=== PATIENT | female | born 1995 | race Caucasian/White ===

== ENCOUNTER 2018-11-03 16:15 | Emergency (ER) | payer OTHER ==
[2018-11-03 17:04] LABS: ABS Eosinophils 0.1 10^3/ul (0-0.6); ABS Monocytes 0.7 10^3/ul (0-0.8); ABS Neutrophils 7.7 10^3/ul (1.5-7.7); Eosinophil % 0.7 %; Hematocrit 42 % (35-47); Hemoglobin 14.5 g/dL (12.0-16.0); Lymphocyte % 10.8 %; Mean Corpuscular HGB Conc 35 g/dL (31-36); Mean Corpuscular Hemoglobin 31 pg (27-31); Mean Corpuscular Volume 88 fL (80-97); Nucleated Red Blood Cells % 0.1; Platelet Count 152 10^3/uL (150-450); Red Blood Count 4.74 10^6 /uL (3.70-4.87); Red Cell Distribution Width 14 % (10-15); White Blood Count 9.5 10^3/uL (3.5-10.8)
--- NOTE | 2018-11-03 17:12 | ED ---
Syncope/Near Syncope - HPI Summary HPI Summary: A 23 y/o female brought in by [facility] ambulance presents to [facility] with a chief complaint of syncope today. She notes that she was walking up a hill and then felt hungry so she went to go buy a sandwich. When she was in line, she was up against the wall when she had her first syncopal episode, claiming that it was a light fall. She was then put into a chair, and she had another syncopal episode. She remembers feeling nauseous and lightheaded before her syncopal episodes, and she notes that her period started today, so she was having excruciating menstrual cramps before her syncopal episodes. She denies any CP or SOB. She notes that she had a syncopal episode at 10 y/o. - History Of Current Complaint Chief Complaint: EDSyncope Time Seen by Provider: 11/03/18 16:32 Hx Obtained From: Patient Onset/Duration: Sudden Onset, Lasting Minutes, Resolved Timing: Intermittent Episode Lasting Context: Witnessed Activity At Onset: Other - waiting in line with menstrual cramps Aggravating Factor(s): Nothing Alleviating Factor(s): Nothing Associated Signs And Symptoms: Lightheadedness - Allergies/Home Medications Allergies/Adverse Reactions: Allergies Allergy/AdvReac Type Severity Reaction Status Date / Time No Known Allergies Allergy Verified 11/03/18 17:03 PMH/Surg Hx/FS Hx/Imm Hx Sensory History: Denies: Hx Deafness EENT History: Denies: Hx Deafness Neurological History: Reports: Other Neuro Impairments/Disorders - syncope Infectious Disease History: No Infectious Disease History: Denies: Traveled Outside the [place] in Last 30 Days - Family History Known Family History: Negative: Blood Disorder - Social History Alcohol Use: Occasionally Substance Use Type: Reports: None Smoking Status (MU): Never Smoked Tobacco Review of Systems Negative: Fever Negative: Chest Pain Negative: Shortness Of Breath Positive: Abdominal Pain, Nausea Neurological: Other - positive: lightheaded Positive: Syncope All Other Systems Reviewed And Are Negative: Yes Physical Exam - Summary Physical Exam Summary: GENERAL: Patient is a well-developed and nourished F who is lying comfortable in the stretcher. Patient is not in any acute respiratory distress. HEAD AND FACE: Normocephalic EYES: PERRLA, EOMI x 2. EARS: Hearing grossly intact. MOUTH: Oropharynx within normal limits. NECK: Supple, trachea is midline, no adenopathy, no JVD, no carotid bruit. CHEST: Symmetric, no tenderness at palpation LUNGS: Clear to auscultation bilaterally. No wheezing or crackles. CVS: Regular rate and rhythm, S1 and S2 present, no murmurs or gallops appreciated. ABDOMEN: Soft, non-tender. Bowel sounds are normal. No abnormal abdominal pulsations. EXTREMITIES: Full ROM in all major joints, no edema, no cyanosis or clubbing. NEURO: Alert and oriented x 3. No acute neurological deficits. Speech is normal and follows commands. SKIN: Dry and warm Triage Information Reviewed: Yes Vital Signs On Initial Exam: Initial Vitals Temp Pulse Resp BP Pulse Ox 97.1 F 55 20 88/56 100 11/03/18 16:20 11/03/18 16:20 11/03/18 16:20 11/03/18 16:20 11/03/18 16:20 Vital Signs Reviewed: Yes Diagnostics - Vital Signs Vital Signs Temp Pulse Resp BP Pulse Ox 11/03/18 16:29 55 10 100 11/03/18 16:23 54 11/03/18 16:20 97.1 F 55 20 88/56 100 - Laboratory Result Diagrams: 11/03/18 16:50 11/03/18 16:50 Lab Statement: Any lab studies that have been ordered have been reviewed, and results considered in the medical decision making process. - EKG 16:35 Cardiac Rate: NL - 52 bpm EKG Rhythm: Sinus Rhythm Summary of EKG Findings: NSR at 52 bpm, nml no ischemic changes. Course/Dx Course Of Treatment: A 23 y/o female brought in by [facility] ambulance presents to [facility] with a chief complaint of syncope today. Syncope is most likely secondary to vasovagal and pain from menstual cramps. The physical exam was unremarkable. Bloodwork, chemistries and urines obtained. At 17:45 Urine blood 3+, Urine WBC 1 +, Urine RBC 3+, Ur Squamous Epith Cells present, Urine Bacteria 1+, Hyaline Casts present. The patient will be discharged. I discussed results with patient , and she reports feeling better. She is hemodynamically stable and safe for discharge. Strict return precautions given and she will otherwise follow up with her PCP. - Diagnoses Provider Diagnoses: Vasovagal syncope Discharge - Sign-Out/Discharge Documenting (check all that apply): Patient Departure - DC Patient Received Moderate/Deep Sedation with Procedure: No - Discharge Plan Condition: Stable Disposition: HOME Patient Education Materials: Syncope (DC) Referrals: [facility] [Outside] (1-3 days) Additional Instructions: Follow up with your primary care physician in 1-3 days. RETURN TO THE EMERGENCY DEPARTMENT FOR CHANGING OR WORSENING SYMPTOMS. - Billing Disposition and Condition Condition: STABLE Disposition: Home - Attestation Statements Document Initiated by Scribe: Yes Documenting Scribe: Alberto Palma Provider For Whom Scribe is Documenting (Include Credential): Mckenzie Menezes MD Scribe Attestation: IAlberto, scribed for Mckenzie Menezes MD on 11/03/18 at 1819. Scribe Documentation Reviewed: Yes Provider Attestation: The documentation as recorded by the Alberto smart accurately reflects the service I personally performed and the decisions made by me, Kevyn Menezes MD Status of Scribe Document: Viewed
[2018-11-03 17:15] LABS: ALT 13 U/L (7-52); AST 20 U/L (13-39); Albumin 4.9 g/dL (3.2-5.2); Albumin/Globulin Ratio 1.7 (1-3); Alkaline Phosphatase 76 U/L (34-104); Anion Gap 8 mmol/L (2-11); BUN/Creatinine Ratio 19.7 (8-20); Blood Urea Nitrogen 15 mg/dL (6-24); CO2 Carbon Dioxide 22 mmol/L (22-32); Calcium 9.2 mg/dL (8.6-10.3); Chloride 107 mmol/L (101-111); EGFR African American 116.2 (>60); EGFR Non-African American 96.1 (>60); Globulin 2.9 g/dL (2-4); Glucose 120 mg/dL (70-100); Magnesium 1.7 mg/dL (1.9-2.7); Potassium 3.9 mmol/L (3.5-5.0); Sodium 137 mmol/L (135-145); Total Protein 7.8 g/dL (6.4-8.9)
[2018-11-03 17:21] LABS: HCG Pregnancy < 0.60 mIU/mL
[2018-11-03 17:55] LABS: Urine Appearance Clear; Urine Bacteria 1+ (Absent); Urine Bilirubin Negative (Negative); Urine Blood 3+ (Negative); Urine Color Yellow; Urine Glucose Negative (Negative); Urine Ketones Negative (Negative); Urine Nitrite Negative (Negative); Urine Protein Negative (Negative); Urine Red Blood Cell 3+(>10/hpf) (Absent); Urine Specific Gravity 1.008 (1.010-1.030); Urine Squamous Epithelial Cell Present (Absent); Urine Urobilinogen Negative (Negative); Urine White Blood Cell 1+(6-10/hpf) (Absent)
[2018-11-03 18:15] VITALS: BP 102/63
== END 2018-11-03 18:15 | disposition home or self-care (01) ==
LOC: ED 16:15
DX: R55 Syncope and collapse (principal)
CPT/HCPCS: 36415; 80053; 81003; 81015; 83605; 83735; 84443; 84484; 84702; 85025; 87086; 93005; 99283